=== PATIENT | male | born 1940 | race Caucasian/White ===

== ENCOUNTER 2018-12-21 08:43 | Emergency (ER) | payer MEDICARE ==
[2018-12-21 08:55] VITALS: RESP 18; TEMP 98
[2018-12-21] MEDS ORDERED: IPRATROPIUM-ALBUTEROL 3 ML NEB INHALATION STA (09:20)
--- NOTE | 2018-12-21 09:48 | ED ---
SOB HPI - General Chief Complaint: Shortness of Breath Stated Complaint: Difficulty breathing Time Seen by Provider: 12/21/18 09:00 Source: patient, RN notes reviewed Mode of arrival: ambulatory Limitations: no limitations - History of Present Illness Initial Comments: This a 78-year-old male presents emergency Department chief complain of shortness breath. Patient states that worsening shortness breath last couple days. Patient states that he has had a cough for the last 1 week. Patient states that is essentially nonproductive cough. Patient does have a history of lung CA with right upper lobectomy. Patient states she had no chemoradiation a fter. Patient's had multiple follow-ups with his oncologist and he said normal PET scans. Patient denies any fevers or chills. Patient states that he did use his old pro-air inhaler and which this did alleviate some symptoms. Patient has no history of COPD. Denies any nausea vomiting. Denies any headache or dizziness. - Related Data Home Medications Medication Instructions Recorded Confirmed Aspirin EC [Ecotrin Low Dose] 81 mg PO DAILY PRN 12/21/18 12/21/18 Finasteride [Proscar] 5 mg PO DAILY 12/21/18 12/21/18 Losartan Potassium 50 mg PO DAILY 12/21/18 12/21/18 Rosuvastatin [Crestor] 10 mg PO HS 12/21/18 12/21/18 Venlafaxine HCl ER [Effexor Xr] 37.5 mg PO DAILY 12/21/18 12/21/18 metFORMIN HCL 1,000 mg PO BID 12/21/18 12/21/18 Previous Rx's Medication Instructions Recorded Azithromycin [Zithromax Z-pack] 0 mg PO DIRECTED #1 pack 12/21/18 predniSONE 50 mg PO DAILY #5 tab 12/21/18 Allergies Allergy/AdvReac Type Severity Reaction Status Date / Time Penicillins Allergy Rash/Hives Verified 12/21/18 09:42 Review of Systems ROS Statement: Those systems with pertinent positive or pertinent negative responses have been documented in the HPI. ROS Other: All systems not noted in ROS Statement are negative. Past Medical History Past Medical History: Cancer, Diabetes Mellitus, Hyperlipidemia History of Any Multi-Drug Resistant Organisms: None Reported Past Surgical History: No Surgical Hx Reported, Orthopedic Surgery Additional Past Surgical History / Comment(s): cervical, lumbar, B rotator cuff Past Psychological History: No Psychological Hx Reported Smoking Status: Never smoker Past Alcohol Use History: None Reported Past Drug Use History: None Reported General Exam Limitations: no limitations General appearance: alert, in no apparent distress Head exam: Present: atraumatic, normocephalic, normal inspection Eye exam: Present: normal appearance, PERRL, EOMI. Absent: scleral icterus, conjunctival injection, periorbital swelling ENT exam: Present: normal exam, normal oropharynx, mucous membranes moist Neck exam: Present: normal inspection, full ROM. Absent: tenderness, meningismus, lymphadenopathy Respiratory exam: Present: wheezes. Absent: normal lung sounds bilaterally, respiratory distress, rales, rhonchi, stridor Cardiovascular Exam: Present: regular rate, normal rhythm, normal heart sounds. Absent: systolic murmur, diastolic murmur, rubs, gallop, clicks GI/Abdominal exam: Present: soft, normal bowel sounds. Absent: distended, tenderness, guarding, rebound, rigid Back exam: Absent: CVA tenderness (R), CVA tenderness (L) Neurological exam: Present: alert, oriented X3, CN II-XII intact, motor sensory deficit Skin exam: Present: warm, dry, intact, normal color. Absent: rash Course Vital Signs 12/21/18 12/21/18 12/21/18 08:51 10:56 11:04 Temperature 98 F Pulse Rate 80 64 64 Respiratory 18 Rate Blood Pressure 130/71 O2 Sat by Pulse 95 Oximetry Medical Decision Making - Medical Decision Making 78-year-old male presented for shortness of breath and cough. Patient's symptoms seem to be related to his COPD did have be given which improved his symptoms. Patient states he has no shortness of breath no chest pain currently. Patient did have laboratory, chest x-ray and EKG which are essentially u nremarkable other than chronic changes. Patient is controlled discharge and close follow-up return parameters were discussed. - Lab Data Result diagrams: 12/21/18 10:00 12/21/18 10:00 Lab Results 12/21/18 12/21/18 12/21/18 Range/Units 10:00 10:00 10:00 WBC 6.7 (3.8-10.6) k/uL RBC 4.43 (4.30-5.90) m/uL Hgb 13.0 (13.0-17.5) gm/dL Hct 39.9 (39.0-53.0) % MCV 90.1 (80.0-100.0) fL MCH 29.5 (25.0-35.0) pg MCHC 32.7 (31.0-37.0) g/dL RDW 15.6 H (11.5-15.5) % Plt Count 272 (150-450) k/uL Neutrophils % 67 % Lymphocytes % 16 % Monocytes % 7 % Eosinophils % 7 % Basophils % 1 % Neutrophils # 4.5 (1.3-7.7) k/uL Lymphocytes # 1.1 (1.0-4.8) k/uL Monocytes # 0.4 (0-1.0) k/uL Eosinophils # 0.5 (0-0.7) k/uL Basophils # 0.1 (0-0.2) k/uL PT 9.7 (9.0-12.0) sec INR 0.9 (<1.2) APTT 22.3 (22.0-30.0) sec D-Dimer 0.54 (<0.60) mg/L FEU Sodium 139 (137-145) mmol/L Potassium 4.2 (3.5-5.1) mmol/L Chloride 105 (98-107) mmol/L Carbon Dioxide 25 (22-30) mmol/L Anion Gap 9 mmol/L BUN 12 (9-20) mg/dL Creatinine 0.59 L (0.66-1.25) mg/dL Est GFR (CKD-EPI)AfAm >90 (>60 ml/min/1.73 sqM) Est GFR (CKD-EPI)NonAf >90 (>60 ml/min/1.73 sqM) Glucose 121 H (74-99) mg/dL Calcium 9.8 (8.4-10.2) mg/dL Total Bilirubin 0.5 (0.2-1.3) mg/dL AST 19 (17-59) U/L ALT 19 L (21-72) U/L Alkaline Phosphatase 58 (38-126) U/L Troponin I (0.000-0.034) ng/mL NT-Pro-B Natriuret Pep pg/mL Total Protein 6.4 (6.3-8.2) g/dL Albumin 4.1 (3.5-5.0) g/dL 12/21/18 12/21/18 Range/Units 10:00 10:00 WBC (3.8-10.6) k/uL RBC (4.30-5.90) m/uL Hgb (13.0-17.5) gm/dL Hct (39.0-53.0) % MCV (80.0-100.0) fL MCH (25.0-35.0) pg MCHC (31.0-37.0) g/dL RDW (11.5-15.5) % Plt Count (150-450) k/uL Neutrophils % % Lymphocytes % % Monocytes % % Eosinophils % % Basophils % % Neutrophils # (1.3-7.7) k/uL Lymphocytes # (1.0-4.8) k/uL Monocytes # (0-1.0) k/uL Eosinophils # (0-0.7) k/uL Basophils # (0-0.2) k/uL PT (9.0-12.0) sec INR (<1.2) APTT (22.0-30.0) sec D-Dimer (<0.60) mg/L FEU Sodium (137-145) mmol/L Potassium (3.5-5.1) mmol/L Chloride (98-107) mmol/L Carbon Dioxide (22-30) mmol/L Anion Gap mmol/L BUN (9-20) mg/dL Creatinine (0.66-1.25) mg/dL Est GFR (CKD-EPI)AfAm (>60 ml/min/1.73 sqM) Est GFR (CKD-EPI)NonAf (>60 ml/min/1.73 sqM) Glucose (74-99) mg/dL Calcium (8.4-10.2) mg/dL Total Bilirubin (0.2-1.3) mg/dL AST (17-59) U/L ALT (21-72) U/L Alkaline Phosphatase (38-126) U/L Troponin I <0.012 (0.000-0.034) ng/mL NT-Pro-B Natriuret Pep 30 pg/mL Total Protein (6.3-8.2) g/dL Albumin (3.5-5.0) g/dL - EKG Data EKG Comments: EKG performed at 10:00 normal sinus rhythm rate of 63 MN interval 204 QRS 168 QT/QTC 420/437 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 Prescriptions: predniSONE 50 mg PO DAILY #5 tab Azithromycin [Zithromax Z-pack] 0 mg PO DIRECTED #1 pack Is patient prescribed a controlled substance at d/c from ED?: No Referrals: Nonstaff,Physician [Primary Care Provider] - 1-2 days Time of Disposition: 11:55
[2018-12-21 10:37] LABS: Basophils # (A) 0.1 k/uL (0-0.2); Basophils % (A) 1 %; Eosinophils # (A) 0.5 k/uL (0-0.7); Eosinophils % (A) 7 %; HCT 39.9 % (39.0-53.0); Lymphocytes # (A) 1.1 k/uL (1.0-4.8); Lymphocytes % (A) 16 %; MCH 29.5 pg (25.0-35.0); MCHC 32.7 g/dL (31.0-37.0); MCV 90.1 fL (80.0-100.0); Mean Platelet Volume 6.6; Monocytes # (A) 0.4 k/uL (0-1.0); Monocytes % (A) 7 %; Neutrophils # (A) 4.5 k/uL (1.3-7.7); Neutrophils % (A) 67 %; Platelet Count 272 k/uL (150-450); RBC 4.43 m/uL (4.30-5.90); RDW 15.6 % (11.5-15.5); WBC 6.7 k/uL (3.8-10.6)
[2018-12-21 10:50] LABS: ALT 19 U/L (21-72); AST 19 U/L (17-59); African American GFR (CKD) >90 (>60 ml/min/1.73 sqM); Albumin 4.1 g/dL (3.5-5.0); Alkaline Phosphatase 58 U/L (38-126); Anion Gap 9 mmol/L; Blood Urea Nitrogen 12 mg/dL (9-20); Calcium 9.8 mg/dL (8.4-10.2); Carbon Dioxide 25 mmol/L (22-30); Chloride 105 mmol/L (98-107); Glucose 121 mg/dL (74-99); Potassium 4.2 mmol/L (3.5-5.1); Sodium 139 mmol/L (137-145); Total Bilirubin 0.5 mg/dL (0.2-1.3); Total Protein 6.4 g/dL (6.3-8.2)
--- NOTE | 2018-12-21 10:58 | XR ---
EXAMINATION TYPE: XR chest 2V DATE OF EXAM: 12/21/2018 COMPARISON: NONE TECHNIQUE: PA and lateral views submitted. HISTORY: Shortness of breath FINDINGS: The lungs are clear and there is no pneumothorax, pleural effusion, or focal pneumonia. Hyperinflat ion noted. Hypertrophic and degenerative change of the spine. Arthropathy of the shoulders. He. Posts urgical change overlying the cervical spine. Prominence of the pulmonary artery suggests pulmonary ar terial hypertension. IMPRESSION: 1. Correlate for pulmonary arterial hypertension. 2. Mild hyperinflation can be associated with COPD. Correlate clinically.
[2018-12-21 11:14] LABS: D-Dimer 0.54 mg/L FEU (<0.60); INR 0.9 (<1.2); Partial Thromboplastin Time 22.3 sec (22.0-30.0); Prothrombin Time 9.7 sec (9.0-12.0)
[2018-12-21] MEDS ORDERED: methylPREDNISolone SOD SUCCI 125 MG/2 ML VIAL IV STA (11:55)
[2018-12-21 12:12] VITALS: BP 141/69; PULSE 66
== END 2018-12-21 12:10 | disposition home or self-care (01) ==
LOC: EC 08:43
DX: J44.1 Chronic obstructive pulmonary disease with (acute) exacerbation (principal); J06.9 Acute upper respiratory infection, unspecified; I44.4 Left anterior fascicular block; E11.9 Type 2 diabetes mellitus without complications; E78.5 Hyperlipidemia, unspecified; Z88.0 Allergy status to penicillin; Z79.84 Long term (current) use of oral hypoglycemic drugs; Z79.899 Other long term (current) drug therapy; Z85.118 Personal history of other malignant neoplasm of bronchus and lung; Z90.2 Acquired absence of lung [part of]
CPT/HCPCS: 36415; 71046; 80053; 83880; 84484; 85025; 85379; 85610; 85730; 93005; 94640; 99285